=== PATIENT | female | born 1960 | race Caucasian/White ===

== ENCOUNTER 2022-05-26 17:24 | Emergency (ER) | payer SELFPAY ==
--- OUTSIDE RECORDS SUMMARY | 2022-05-26 17:44 | XMS REPORT | Continuity of Care Document ---
:1960 Author Organization [facility] t Address [address] [place] [address] Care Team Providers Name Role Phone Ever Haskins Attending Clinician Unavailable UNKNOWN Admitting Clinician Unavailable Payers Payer Name Policy Type Policy Number Effective Date Expiration Date S ource Problems This patient has no known problems. Allergies, Adverse Reactions, Alerts This patient has no known allergies or adverse reactions. Medications This patient has no known medications. Procedures This patient has no known procedures. Encounters Start End Encounter Admission Attending Care Care Encounter Source Date/Time Date/Time Type Type Clinicians Facility Department ID 2020-01-13 Inpatient KEANU Haddad MRIT [id number] [facility] 10:30:[address] [facility] Results Test Description Test Time Test Comments Results Result [facility] e Comments - MRI C-SPINE W/O 2020-01-13 Patient Name: CONT 13:26:00 BENJA BAH Unit No: [id number] EXAMS: CPT CODE: [id number] MRI C-SPINE W/O CONT 23242 CLINICAL INFORMATION: Neck pain and radiculitis. Dictation Location: B2 COMPARISON: Technique: Sagittal and axial scans were done with T1 and T2-weighted sequences. FINDINGS: There is straightening of the usual cervical lordosis with the vertebral body heights and bone marrow signal intensities maintained. No intrinsic abnormality of the spinal cord or cervicomedullary junction is identified. Occiput to C2: Unremarkable. C2-3: Minimal facet arthropathy. C3-4: 2 to 3 mm central disc protrusion. C4-5: 3 to 4 mm broad-based ridging and disc bulge flattens the anterior thecal margin. Mild foraminal encroachment on the right. C5-6: 2 to 3 mm left posterior lateral disc protrusion indents the anterior thecal margin. C6-7: Moderate interspace narrowing. 6 mm left posterior lateral disc protrusion with uncinate spurring contacts and rotates the spinal cord, impinges the exiting C7 nerve root, and narrows the left neural foramen. Right foramen clear. C7-T1: Unremarkable. IMPRESSION: 1. Straightened cervical lordosis. 2. Multilevel spondylosis. 3. Several disc protrusions are noted. 4. The dominant finding is the large left-sided disc herniation at C6-7. at 1326 Reported and signed by: Jamari Lozoya MD CC: Ever Haskins MD Technologist: Clotilde Pruett; Corin Vidal Trscr Dt/Tm: 01/13/2020 (1326) by:[email or web address] Electronic Signature Date/Time: 01/13/2020 (1326)Orig Print D/T: S: 01/13/2020 (1329) Name: BENJA BAH [facility] [place] Phys: [place] [address] : 1960 Age: 59 [place]: [place] [id number] Loc: [place].TMRI Exam Date: 01/13/2020 Status: REG CLI PH: FAX: PAGE 1 Signed Report
--- NOTE | 2022-05-26 18:14 | RAD REPORT ---
EXAM DESCRIPTION: RAD - Chest Single View - 05/26/2022 6:06 pm CLINICAL HISTORY: COUGH Chest pain. COMPARISON: No comparisons FINDINGS: Portable technique limits examination quality. The lungs are grossly clear. The heart is normal in size. No displaced fractures. IMPRESSION: No acute intrathoracic process suspected.
[2022-05-26 18:15] LABS: Absolute Lymphocytes (CBC) 1.2 K/uL (0.7-4.9); Hematocrit 40.9 % (36.0-45.0); Lymphocytes % 13.4 % (15.3-44.8); MCV 85.1 fL (80-100); MPV 7.6 fL (7.6-11.3)
[2022-05-26 18:36] LABS: Troponin High Sensitivity 7.5 pg/mL (<58.9)
[2022-05-26 18:38] LABS: Magnesium 2.1 mg/dL (1.6-2.4)
[2022-05-26 18:39] LABS: Potassium 3.7 mmol/L (3.5-5.1)
[2022-05-26 19:13] LABS: SARS-COV-2 RT PCR POSITIVE (NEGATIVE)
--- NOTE | 2022-05-26 21:06 | RAD REPORT ---
EXAM DESCRIPTION: CT - Head Brain Wo Cont - 05/26/2022 8:55 pm CLINICAL HISTORY: DIZZINESS Headache, drowsiness COMPARISON: No comparisons TECHNIQUE: All CT scans are performed using dose optimization technique as appropriate and may inclu de automated exposure control or mA/KV adjustment according to patient size. FINDINGS: No intracranial hemorrhage, hydrocephalus or extra-axial fluid collection.No areas of brai n edema or evidence of midline shift. The paranasal sinuses and mastoids are clear. The calvarium is intact. IMPRESSION: No acute intracranial abnormality.
--- NOTE | 2022-05-26 21:18 | EDPHYS ---
Physician Documentation [facility] Name: Layne Copeland Age: 62 yrs Sex: Female : 1960 Arrival Date: 05/26/2022 Time: 17:30 Bed 16 Private MD: ED Physician Tee España HPI: 05/26 17:40 This 62 yrs old Female presents to ER via EMS with complaints of Nausea, Vomiting and cp Diarrhea. 17:40 The patient presents to the emergency department with nausea, that is moderate, cp vomiting, that is intermittent, diarrhea, 1 times today. 17:40 Onset: The symptoms/episode began/occurred 2 day(s) ago. Possible causes: unknown. cp Associated signs and symptoms: Pertinent positives: near syncope, Pertinent negatives: abdominal pain, chest pain. Severity of symptoms: in the emergency department the symptoms are unchanged despite home interventions. Historical: - Allergies: 17:32 Morphine; mb9 17:32 Sulfa (Sulfonamide Antibiotics); mb9 17:32 PENICILLINS; mb9 - Home Meds: 17:32 levothyroxine oral [Active]; Synthroid Oral [Active]; mb9 - PMHx: 17:32 Hypothyroidism; mb9 - PSHx: 17:32 None; mb9 - Immunization history:: Adult Immunizations not up to date. - Social history:: Smoking status: Patient denies any tobacco usage or history of. ROS: 17:45 Constitutional: Positive for poor PO intake, Negative for chills, fever. cp 17:45 Cardiovascular: Negative for chest pain, palpitations. cp 17:45 Respiratory: Positive for cough, Negative for shortness of breath, wheezing. 17:45 Abdomen/GI: Positive for nausea, vomiting, diarrhea, Negative for abdominal pain, constipation. 17:45 Neuro: Positive for near syncope, weakness. cp 17:45 All other systems are negative. cp Exam: 17:50 Constitutional: The patient appears in no acute distress, alert, awake, cp non-diaphoretic, non-toxic, well developed, well nourished. 17:50 Head/Face: Normocephalic, atraumatic. cp 17:50 Eyes: Periorbital structures: appear normal, Pupils: equal, round, and reactive to light and accomodation, Extraocular movements: intact throughout, Conjunctiva: normal, no exudate, no injection, Sclera: no appreciated abnormality, Lids and lashes: appear normal, bilaterally. 17:50 ENT: External ear(s): are unremarkable, Nose: is normal, Mouth: Lips: moist, Oral mucosa: pink and intact, moist, Posterior pharynx: Airway: no evidence of obstruction, patent, swelling, is not appreciated, erythema, is not appreciated, exudate, is not appreciated. 17:50 Neck: ROM/movement: is normal, is supple, without pain, no range of motions limitations, no meningismus. 17:50 Chest/axilla: Inspection: normal. 17:50 Cardiovascular: Rate: normal, Rhythm: regular, Edema: is not appreciated, JVD: is not appreciated. 17:50 Respiratory: the patient does not display signs of respiratory distress, Respirations: normal, no use of accessory muscles, no retractions, labored breathing, is not present, Breath sounds: are clear throughout, no decreased breath sounds, no stridor, no wheezing. 17:50 Abdomen/GI: Inspection: abdomen appears normal, Palpation: abdomen is soft and non-tender, in all quadrants. 17:50 Neuro: Orientation: to person, place \T\ time. Mentation: is normal, Motor: moves all fours, strength is normal, Sensation: is normal, Gait: is steady. 18:52 ECG was reviewed by the Attending Physician. cp Vital Signs: 17:30 BP 152 / 65; Pulse 93; Resp 16; Temp 98.3(O); Pulse Ox 100% on R/A; Weight 86.18 kg; mb9 Height 5 ft. 7 in. (170.18 cm); Pain 0/10; 19:00 BP 128 / 51; Pulse 83; Resp 14; Pulse Ox 96% ; bp 20:25 BP 144 / 72; Pulse 89; Resp 16 S; Pulse Ox 97% on R/A; lg3 21:34 BP 136 / 76; Pulse 85; Resp 15 S; Pulse Ox 98% on R/A; lg3 17:30 Body Mass Index 29.76 (86.18 kg, 170.18 cm) mb9 MDM: 17:32 Patient medically screened. cp 21:18 Differential diagnosis: Nonspecific abd pain, gastritis. Data reviewed: vital signs, snw nurses notes, lab test result(s), radiologic studies. Counseling: I had a detailed discussion with the patient and/or guardian regarding: the historical points, exam findings, and any diagnostic results supporting the discharge/admit diagnosis, the presence of at least one elevated blood pressure reading (>120/80) during this emergency department visit, lab results, radiology results, the need for outpatient follow up, to return to the emergency department if symptoms worsen or persist or if there are any questions or concerns that arise at home. Special discussion: I have referred the patient to see his PCP for further evaluation of high blood pressure. Based on the history and exam findings, there is no indication for further emergent testing or inpatient evaluation. I discussed with the patient/guardian the need to see the primary care provider for further evaluation of the symptoms. 05/26 17:32 Order name: Basic Metabolic Panel; Complete Time: 19:05 02/ 19:05 Interpretation: Normal except: GLUC 141. 05/26 17:32 Order name: CBC with Diff; Complete Time: 19:05 05/26 19:05 Interpretation: Normal except: SALAS% 77.7; LYM% 13.4. 05/26 17:32 Order name: Magnesium; Complete Time: 19:05 cp 05/26 17:32 Order name: Troponin HS; Complete Time: 19:05 cp / 19:06 Interpretation: Troponin HS 7.5; Reviewed. 05/26 17:32 Order name: COVID-19/FLU A+B; Complete Time: 20:00 cp 02/ 20:00 Interpretation: Reviewed. 05/26 17:32 Order name: XRAY Chest (1 view); Complete Time: 19:05 05/26 19:05 Interpretation: Report review. 05/26 17:32 Order name: EKG; Complete Time: 17:32 cp 05/26 17:32 Order name: Cardiac monitoring; Complete Time: 17:35 cp 05/26 17:32 Order name: EKG - Nurse/Tech; Complete Time: 18:29 cp / 17:32 Order name: IV Saline Lock; Complete Time: 18:20 cp 02/ 20:12 Order name: CT Head Brain wo Cont; Complete Time: 21:18 cp 05/26 17:32 Order name: Labs collected and sent; Complete Time: 18:20 cp 05/26 17:32 Order name: O2 Per Protocol; Complete Time: 17:35 cp 05/26 17:32 Order name: O2 Sat Monitoring; Complete Time: 17:35 cp 05/26 19:06 Order name: PO challenge; Complete Time: 19:56 cp EC:52 Rate is 80 beats/min. Rhythm is regular. DC interval is normal. QRS interval is normal. cp QT interval is normal. T waves are Inverted in lead aVR. Interpreted by me. Reviewed by me. Administered Medications: 18:00 Drug: NS 0.9% 500 ml Route: IV; Rate: bolus; Site: right antecubital; bp 18:00 Drug: NS 0.9% 500 ml Route: IV; Rate: 125 ml/hr; Site: right antecubital; bp Disposition: 21:19 Chart complete. snw 05/27 07:46 Co-signature as Attending Physician, Tee España MD I reviewed the patient's care rt provided by the Advanced Practice Provider and agree with the diagnosis and treatment plan. Disposition Summary: 05/26/22 21:18 Discharge Ordered Location: Home snw Problem: new snw Symptoms: have improved snw Condition: Stable snw Diagnosis - SARS-associated coronavirus as the cause of diseases classified elsewhere snw - Diarrhea, unspecified snw - Nausea with vomiting, unspecified snw Followup: cp - With: Private Physician - When: 2 - 3 days - Reason: Worsening of condition Discharge Instructions: - Discharge Summary Sheet cp - Food Choices to Help Relieve Diarrhea, Adult cp - Diarrhea, Adult cp - Nausea and Vomiting, Adult cp - Aspirin and Your Heart cp - COVID-19 cp - Things to Know about the COVID-19 Pandemic - [facility] cp - 10 Things You Can Do to Manage Your COVID-19 Symptoms at Home - [facility] cp - COVID-19: Quarantine vs. Isolation - [facility] cp - Prevent the Spread of COVID-19 if You Are Sick - [facility] cp Forms: - Medication Reconciliation Form snw - Thank You Letter snw - Antibiotic Education snw - Prescription Opioid Use snw Prescriptions: - Paxlovid (EUA) 150 mg x 2- 100 mg Oral tablet - take 3 tablet by ORAL route 2 times per day for 5 days per package directions; cp 30 tablet; Refills: 0, Product Selection Permitted - Zofran 4 mg Oral Tablet - take 1 tablet by ORAL route every 12 hours As needed; 20 tablet; Refills: 0, cp Product Selection Permitted Signatures: Dispatcher [employer] EDMS YorkRoslyny, AUDIO VISUAL DIRECTOR-C AUDIO VISUAL DIRECTOR-Csnw George Alston PA PA cp Peltier, Brian, RN RN Denise Alegre RN RN mb9 Tee España MD MD rt Corrections: (The following items were deleted from the chart) 05/26 20:37 20:36 This 62 yrs old Female presents to ER via EMS with complaints of Nausea, Vomiting cp and Diarrhea. cp
--- NOTE | 2022-05-26 21:18 | ER ---
Nurse's Notes [facility] Name: Layne Copeland Age: 62 yrs Sex: Female : 1960 Arrival Date: 05/26/2022 Time: 17:30 Bed 16 Private MD: Diagnosis: SARS-associated coronavirus as the cause of diseases classified elsewhere;Diarrhea, unspecified;Nausea with vomiting, unspecified Presentation: 05/26 17:30 Chief complaint: EMS states: "pt has been sick for the past couple days. She hasn't mb9 eaten in over 24 hrs and passed out but her son caught her. They deny any LOC or hitting her head. Pt was confused and lethargic on scene". Coronavirus screen: Vaccine status: Patient reports being unvaccinated. Ebola Screen: No symptoms or risks identified at this time. Initial Sepsis Screen: Does the patient meet any 2 criteria? No. Patient's initial sepsis screen is negative. Does the patient have a suspected source of infection? No. Patient's initial sepsis screen is negative. Risk Assessment: Do you want to hurt yourself or someone else? Patient reports no desire to harm self or others. Onset of symptoms was May 26, 2022. 17:30 Method Of Arrival: EMS: [facility] mb9 17:30 Acuity: SISI 3 mb9 Triage Assessment: 17:30 General: Appears in no apparent distress. comfortable, Behavior is cooperative, bp appropriate for age, anxious. Pain: Denies pain. EENT: No deficits noted. Neuro: No deficits noted. Cardiovascular: No deficits noted. Respiratory: No deficits noted. GI: No signs and/or symptoms were reported involving the gastrointestinal system. : No signs and/or symptoms were reported regarding the genitourinary system. Derm: No deficits noted. Musculoskeletal: No deficits noted. Historical: - Allergies: 17:32 Morphine; mb9 17:32 Sulfa (Sulfonamide Antibiotics); mb9 17:32 PENICILLINS; mb9 - Home Meds: 17:32 levothyroxine oral [Active]; Synthroid Oral [Active]; mb9 - PMHx: 17:32 Hypothyroidism; mb9 - PSHx: 17:32 None; mb9 - Immunization history:: Adult Immunizations not up to date. - Social history:: Smoking status: Patient denies any tobacco usage or history of. Screenin:00 [facility] ED Fall Risk Assessment (Adult) History of falling in the last 3 months, bp including since admission No falls in past 3 months (0 pts). Abuse screen: Denies threats or abuse. Denies injuries from another. Nutritional screening: No deficits noted. Tuberculosis screening: No symptoms or risk factors identified. Assessment: 17:30 General: SEE TRIAGE NOTE. bp 19:00 Reassessment: No changes from previously documented assessment. Patient and/or family bp updated on plan of care and expected duration. Pain level reassessed. 20:25 General: Appears in no apparent distress. comfortable. General: Behavior is calm, lg3 cooperative. Pain: Denies pain. Neuro: No deficits noted. Ocampo Agitation-Sedation Scale (RASS): 0 - Alert and Calm Level of Consciousness is awake, alert, obeys commands, Oriented to person, place, time, situation. Cardiovascular: No deficits noted. Denies chest pain, shortness of breath. Respiratory: No deficits noted. Airway is patent Trachea midline Respiratory effort is even, unlabored, Respiratory pattern is regular, symmetrical. GI: No deficits noted. No signs and/or symptoms were reported involving the gastrointestinal system. : No deficits noted. No signs and/or symptoms were reported regarding the genitourinary system. EENT: No deficits noted. No signs and/or symptoms were reported regarding the EENT system. Derm: No deficits noted. No signs and/or symptoms reported regarding the dermatologic system. Skin is intact, is healthy with good turgor, Skin is dry, Skin is normal, Skin temperature is warm. Musculoskeletal: No deficits noted. Circulation, motion, and sensation intact. Range of motion: intact in all extremities. 21:32 Reassessment: Patient appears in no apparent distress at this time. No changes from lg3 previously documented assessment. Patient and/or family updated on plan of care and expected duration. Pain level reassessed. Vital Signs: 17:30 BP 152 / 65; Pulse 93; Resp 16; Temp 98.3(O); Pulse Ox 100% on R/A; Weight 86.18 kg; mb9 Height 5 ft. 7 in. (170.18 cm); Pain 0/10; 19:00 BP 128 / 51; Pulse 83; Resp 14; Pulse Ox 96% ; bp 20:25 BP 144 / 72; Pulse 89; Resp 16 S; Pulse Ox 97% on R/A; lg3 21:34 BP 136 / 76; Pulse 85; Resp 15 S; Pulse Ox 98% on R/A; lg3 17:30 Body Mass Index 29.76 (86.18 kg, 170.18 cm) mb9 ED Course: 17:30 Patient arrived in ED. 9 17:30 George Alston PA is PHCP. cp 17:30 Tee España MD is Attending Physician. cp 17:31 Triage completed. mb9 17:31 Arm band placed on. mb9 17:33 Bed in low position. Call light in reach. Side rails up X 1. Client placed on mb9 continuous cardiac and pulse oximetry monitoring. NIBP monitoring applied. threat monitoring analyst on. Door closed. Noise minimized. Warm blanket given. 17:36 Daquan Hernandez, DANDY is Primary Nurse. bp 17:38 Maintain EMS IV. Dressing intact. Good blood return noted. Site clean \\T\\ dry. Gauge \\T\\ mb 9 site: 22 gauge to right hand. 18:08 XRAY Chest (1 view) In Process Unspecified. EDMS 20:57 CT Head Brain wo Cont In Process Unspecified. EDMS 21:35 No provider procedures requiring assistance completed. IV discontinued, intact, lg3 bleeding controlled, No redness/swelling at site. Pressure dressing applied. Administered Medications: 18:00 Drug: NS 0.9% 500 ml Route: IV; Rate: bolus; Site: right antecubital; bp 18:00 Drug: NS 0.9% 500 ml Route: IV; Rate: 125 ml/hr; Site: right antecubital; bp Medication: 21:35 VIS not applicable for this client. lg3 Outcome: 21:18 Discharge ordered by . snw 21:35 Discharged to home ambulatory, with family. lg3 21:35 Condition: stable 21:35 Discharge instructions given to patient, Instructed on discharge instructions, follow up and referral plans. medication usage, Demonstrated understanding of instructions, follow-up care, medications, Prescriptions given X 2. 21:36 Patient left the ED. lg3 Signatures: Dispatcher [employer] EDMS Jannie York, JENNIFER-C LAST REPAIRER-Csnw George Alston PA PA cp Peltier, Brian, RN RN bp Gibson, Lacie, RN RN lg3 Denise Lux Beth, RN RN mb9
[2022-05-26 22:22] VITALS: TEMP 98.3
[2022-05-26 22:25] VITALS: BP 136/76; O2SAT 98
== END 2022-05-26 21:36 | disposition home or self-care (01) ==
LOC: ER 17:24
DX: U07.1 COVID-19 (principal); R19.7 Diarrhea, unspecified
CPT/HCPCS: 0240U; 36415; 70450; 71045; 80048; 83735; 84484; 85025; 93005; 99284

== ENCOUNTER 2022-10-12 10:46 | Emergency (ER) | payer SELFPAY ==
--- OUTSIDE RECORDS SUMMARY | 2022-10-12 10:50 | XMS REPORT | Continuity of Care Document ---
:1960 Author Organization [facility] t Address [address] [place] [address] Care Team Providers Name Role Phone Ever [...] Type Clinicians Facility Department ID 2020-01-13 Inpatient [id number] 10:30:[address] are [facility] Results Test Description Test Time Test Comments Results Result [facility] e Comments - MRI C-SPINE W/O 2020-01-13 Patient Name: CONT 13:26:00 BENJA BAH Unit No: [id number] EXAMS: CPT CODE: [id number] MRI C-SPINE W/O CONT 82911 CLINICAL INFORMATION: Neck pain and radiculitis. Dictation [...] D/T: S: 01/13/2020 (1329) [facility] [place]: [place] [address] : 1960 Age: 59 Sex: [place] [id number] Loc: [place].TMRI Exam Date: 01/13/2020 Status: REG CLI PH: FAX: PAGE 1 Signed Report
[2022-10-12] MEDS ORDERED: FAMOTIDINE 20 MG/2 ML VIAL IV ONE (11:13)
[2022-10-12] MEDS ORDERED: ONDANSETRON 4 MG/2 ML VIAL ONE ×2 (11:13→14:44)
[2022-10-12] MEDS ORDERED: NA CHLORIDE 0.9% 1,000 ML ONE ×2 (11:13→14:07)
[2022-10-12] MEDS ORDERED: KETOROLAC 30 MG/ML INJ ONE (11:13)
[2022-10-12 11:42] LABS: Absolute Lymphocytes (CBC) 1.2 K/uL (0.7-4.9); Hematocrit 46.6 % (36.0-45.0); Lymphocytes % 8.7 % (15.3-44.8); MCV 87.7 fL (80-100); RBC Red Blood Cell Count 5.32 M/uL (3.86-4.86)
[2022-10-12 12:02] LABS: Albumin 4.5 g/dL (3.4-5.0); Bilirubin Total 0.8 mg/dL (0.2-1.0); Protein, Total 8.6 g/dL (6.4-8.2)
[2022-10-12 12:03] LABS: Potassium 3.6 mEq/L (3.5-5.1)
[2022-10-12 12:23] LABS: Blood Morphology Comment NOT SEEN (NOT SEEN); Platelet Estimate ADEQ; White Blood Cell Scan OK (OK)
--- NOTE | 2022-10-12 12:40 | RAD REPORT ---
EXAM DESCRIPTION: CT - Abdomen Pelvis Wo Contrast - 10/12/2022 12:27 pm CLINICAL HISTORY: Abdominal pain. ABD PAIN COMPARISON: <Comparisons> TECHNIQUE: CT imaging of the abdomen and pelvis was performed without contrast. Solid organ, bowel a nd vascular assessment is limited due to lack of IV and oral contrast. All CT scans are performed using dose optimization technique as appropriate and may include automated exposure control or mA/KV adjustment according to patient size. FINDINGS: The lower lung vail are clear. The liver, spleen, pancreas, adrenal glands and kidneys are within normal limits for a limited non-co ntrast examination. No bowel obstruction, free air, free fluid or abscess. Small fat containing umbilical hernia. The carroll endix is normal. Mild lumbar degenerative changes. IMPRESSION: No acute intra-abdominal or pelvic findings. A limited non-contrast examination was performed as detailed.
[2022-10-12 16:16] LABS: Urine Bacteria <20 /HPF (<20); Urine Crystals Unidentified Few /HPF (None Seen); Urine Mucus Slight /HPF (None Seen); Urine RBC <5 /HPF (None Seen)
[2022-10-12 16:18] LABS: Urine Clarity Clear (Clear); Urine Color Yellow (Yellow); Urine Glucose Negative (Negative)
[2022-10-12 16:19] LABS: Urine Bilirubin Negative (Negative); Urine Blood Negative (Negative); Urine Protein Negative (Negative); Urine Urobilinogen Normal (Normal)
--- NOTE | 2022-10-12 16:31 | ER ---
Nurse's Notes [facility] Name: Layne Copeland Age: 62 yrs Sex: Female : 1960 Arrival Date: 10/12/2022 Time: 10:46 Bed 2 Private MD: Diagnosis: Diarrhea, unspecified;Abdominal pain, unspecified Presentation: 10/12 10:51 Chief complaint: Patient states: N/D, right sided abdominal pain, flank pain since this ld1 morning. Coronavirus screen: At this time, the client does not indicate any symptoms associated with coronavirus-19. Ebola Screen: No symptoms or risks identified at this time. Initial Sepsis Screen: Does the patient meet any 2 criteria? No. Patient's initial sepsis screen is negative. Does the patient have a suspected source of infection? No. Patient's initial sepsis screen is negative. Risk Assessment: Do you want to hurt yourself or someone else? Patient reports no desire to harm self or others. Onset of symptoms was October 12, 2022. 10:51 Method Of Arrival: Ambulatory ld1 10:51 Acuity: SISI 3 ld1 Triage Assessment: 10:53 General: Appears in no apparent distress. uncomfortable, Behavior is cooperative, ld1 agitated, anxious. Pain: Denies pain. EENT: No signs and/or symptoms were reported regarding the EENT system. Neuro: Level of Consciousness is awake, alert, obeys commands, Oriented to person, place, time, situation. Cardiovascular: Capillary refill < 3 seconds Patient's skin is warm and dry. Respiratory: Airway is patent Respiratory effort is even, unlabored. GI: Abdomen is round non-distended, Reports diarrhea, nausea. : No signs and/or symptoms were reported regarding the genitourinary system. Derm: No signs and/or symptoms reported regarding the dermatologic system. Musculoskeletal: No signs and/or symptoms reported regarding the musculoskeletal system. Historical: - Allergies: 10:52 Morphine; ld1 10:52 PENICILLINS; ld1 10:52 Sulfa (Sulfonamide Antibiotics); ld1 10:54 Valtrex; ld1 10:54 Doxycycline; ld1 10:54 Vitamin B-12; ld1 10:54 Multivitamin; ld1 - PMHx: 10:52 Hypothyroidism; Kidney stone; ld1 - PSHx: 10:52 section; ld1 10:53 Tonsillectomy; ld1 - Immunization history:: Adult Immunizations up to date. - Social history:: Smoking status: Patient denies any tobacco usage or history of. Patient/guardian denies using alcohol. Screenin:00 [facility] ED Fall Risk Assessment (Adult) History of falling in the last 3 months, bp including since admission No falls in past 3 months (0 pts). Abuse screen: Denies threats or abuse. Denies injuries from another. Nutritional screening: No deficits noted. Tuberculosis screening: No symptoms or risk factors identified. Assessment: 11:00 General: SEE TRIAGE NOTE. bp 12:52 Reassessment: PT RETURNED FROM CT. GI: Reports diarrhea, nausea. bp 15:00 Reassessment: Patient appears in no apparent distress at this time. Patient is alert, bp oriented x 3, equal unlabored respirations, skin warm/dry/pink. GI: Abdomen is non-distended, obese. 17:00 Reassessment: Patient appears in no apparent distress at this time. Patient is alert, bp oriented x 3, equal unlabored respirations, skin warm/dry/pink. 18:00 Reassessment: PT DC HOME WITH FAMILY. bp Vital Signs: 10:51 BP 134 / 100; Pulse 96; Resp 18; Temp 97.6(TE); Pulse Ox 99% on R/A; Weight 83.91 kg; ld1 Height 5 ft. 3 in. ; Pain 0/10; 12:52 BP 160 / 53; Pulse 81; Resp 16; Pulse Ox 99% ; bp 14:02 BP 177 / 82; Pulse 83; Resp 16; Pulse Ox 98% ; ko1 16:00 BP 156 / 78; Pulse 77; Resp 16; Pulse Ox 97% ; bp 18:00 BP 144 / 72; Pulse 76; Resp 16; Pulse Ox 97% ; bp 10:51 Body Mass Index 32.77 (83.91 kg, 160.02 cm) ld1 10:51 Pain Scale: Adult ld1 ED Course: 10:48 Patient arrived in ED. im 10:49 Jacklyn Schuster FNP-C is PHCP. kb 10:49 Akbar Vigil MD is Attending Physician. kb 10:52 Triage completed. ld1 10:53 Arm band placed on right wrist. ld1 11:00 Patient has correct armband on for positive identification. Bed in low position. Call bp light in reach. Side rails up X2. Adult w/ patient. 11:07 Ely Peterson, RN is Primary Nurse. ko1 11:17 Inserted saline lock: 22 gauge in left antecubital area, using aseptic technique. Blood ls5 collected. 12:27 Abdomen In Process Unspecified. EDMS 18:04 No provider procedures requiring assistance completed. IV discontinued, intact, bp bleeding controlled, No redness/swelling at site. Pressure dressing applied. Administered Medications: 11:27 Drug: NS 0.9% IV 1000 ml Route: IV; Rate: 1 bolus; Site: left antecubital; bp 17:08 Follow up: IV Status: Completed infusion; IV Intake: 1000ml bp 11:27 Drug: Famotidine IVP 20 mg Route: IVP; Site: left antecubital; bp 17:08 Follow up: Response: No adverse reaction bp 11:27 Drug: TORadol - Ketorolac IVP 15 mg Route: IVP; Site: left antecubital; bp 17:09 Follow up: Response: No adverse reaction bp 11:27 Drug: Ondansetron IVP 4 mg Route: IVP; Site: left antecubital; bp 17:09 Follow up: Response: No adverse reaction bp 14:23 Drug: NS 0.9% IV 1000 ml Route: IV; Rate: 1000 ml; Site: left antecubital; bp 17:08 Follow up: IV Status: Completed infusion; IV Intake: 1000ml bp 14:47 Drug: Ondansetron IVP 4 mg Route: IVP; Site: left antecubital; bp 17:08 Follow up: Response: No adverse reaction bp 17:08 Drug: metroNIDAZOLE PO 500 mg Route: PO; bp 18:05 Follow up: Response: No adverse reaction bp Medication: 18:05 VIS not applicable for this client. bp Intake: 17:08 IV: 1000ml; Total: 1000ml. bp 17:08 IV: 1000ml; Total: 2000ml. bp Outcome: 16:30 Discharge ordered by . kb 18:05 Discharged to home via wheelchair, with family. bp 18:05 Condition: stable 18:05 Discharge instructions given to patient, family, Instructed on discharge instructions, follow up and referral plans. medication usage, Demonstrated understanding of instructions, follow-up care, medications, Prescriptions given X 2. 18:13 Patient left the ED. iw Signatures: Dispatcher [employer] EDMS Jacklyn Schuster, ARCHITECTURE MANAGER-C ARCHITECTURE MANAGER-Carissa Boswell, RN RN Daqaun Brown, RN RN Gladys Cardenas RN RN ld1 Ely Peterson RN RN ko1 Odell Lancaster 5 Delphine Priest
--- NOTE | 2022-10-12 16:31 | EDPHYS ---
Physician Documentation [facility] Name: Layne Copeland Age: 62 yrs Sex: Female : 1960 Arrival Date: 10/12/2022 Time: 10:46 Bed 2 Private MD: ED Physician Akbar Vigil HPI: 10/12 16:41 This 62 yrs old Female presents to ER via Ambulatory with complaints of kb Nausea/Vomiting/Diarrhea. 16:41 The patient presents to the emergency department with nausea, diarrhea, abdominal pain. kb Onset: The symptoms/episode began/occurred this morning. Possible causes: unknown. The symptoms are aggravated by nothing. The symptoms are alleviated by nothing. Associated signs and symptoms: Pertinent positives: abdominal pain, diarrhea, nausea, Pertinent negatives: fever, vomiting. Severity of symptoms: At their worst the symptoms were moderate in the emergency department the symptoms are unchanged. The patient has not experienced similar symptoms in the past. The patient has not recently seen a physician. Historical: - Allergies: 10:52 Morphine; ld1 10:52 PENICILLINS; ld1 10:52 Sulfa (Sulfonamide Antibiotics); ld1 10:54 Valtrex; ld1 10:54 Doxycycline; ld1 10:54 Vitamin B-12; ld1 10:54 Multivitamin; ld1 - PMHx: 10:52 Hypothyroidism; Kidney stone; ld1 - PSHx: 10:52 section; ld1 10:53 Tonsillectomy; ld1 - Immunization history:: Adult Immunizations up to date. - Social history:: Smoking status: Patient denies any tobacco usage or history of. Patient/guardian denies using alcohol. ROS: 16:40 Constitutional: Negative for fever, chills, and weight loss. kb 16:40 Abdomen/GI: Positive for abdominal pain, nausea, diarrhea, Negative for vomiting. 16:40 Back: Positive for flank pain, on the right. 16:40 All other systems are negative. Exam: 16:40 Constitutional: This is a well developed, well nourished patient who is awake, alert, kb and in no acute distress. Head/Face: Normocephalic, atraumatic. ENT: Moist Mucous membranes Cardiovascular: Regular rate and rhythm with a normal S1 and S2. No gallops, murmurs, or rubs. No pulse deficits. Respiratory: Respirations even and unlabored. No increased work of breathing. Talking in full sentences Skin: Warm, dry with normal turgor. Normal color. MS/ Extremity: Pulses equal, no cyanosis. Neurovascular intact. Full, normal range of motion. Neuro: Awake and alert, GCS 15, oriented to person, place, time, and situation. Moves all extremities. Normal gait. 16:40 Abdomen/GI: Inspection: abdomen appears normal, Bowel sounds: normal, Palpation: abdomen is soft and non-tender, in all quadrants. 16:40 Back: CVA tenderness, that is mild, is noted on the right. Vital Signs: 10:51 BP 134 / 100; Pulse 96; Resp 18; Temp 97.6(TE); Pulse Ox 99% on R/A; Weight 83.91 kg; ld1 Height 5 ft. 3 in. ; Pain 0/10; 12:52 BP 160 / 53; Pulse 81; Resp 16; Pulse Ox 99% ; bp 14:02 BP 177 / 82; Pulse 83; Resp 16; Pulse Ox 98% ; ko1 16:00 BP 156 / 78; Pulse 77; Resp 16; Pulse Ox 97% ; bp 18:00 BP 144 / 72; Pulse 76; Resp 16; Pulse Ox 97% ; bp 10:51 Body Mass Index 32.77 (83.91 kg, 160.02 cm) ld1 10:51 Pain Scale: Adult ld1 MDM: 10:49 Patient medically screened. kb 16:35 Differential diagnosis: Nonspecific abd pain, gastritis, diverticulitis, viral kb gastroenteritis, uti, pyelonephritis, kidney stone, colitis. Data reviewed: vital signs, nurses notes. Counseling: I had a detailed discussion with the patient and/or guardian regarding: the historical points, exam findings, and any diagnostic results supporting the discharge/admit diagnosis, lab results, radiology results, the need for outpatient follow up, a family practitioner, to return to the emergency department if symptoms worsen or persist or if there are any questions or concerns that arise at home. ED course: Pt wants antibiotics or antivirals. States she does not believe in letting anything run its course. States she could have a kidney stone that cannot be seen on CT or shingles in her abd. Pt educated that antiviral medication is not indicated at this time and that antibiotics could make the diarrhea worse. I offered to have stool culture and c.diff testing sent, but informed pt that the results would not come back today. Pt states she still wants antibiotics. Also reports she does not want to go home because it is 80 degrees in her house and she cannot stay cool there. Educated that there is no indication for admission at this time. Educated on importance of increasing fluid intake to replace what she is losing through diarrhea. Pt states she is going to come back because of dehydration because it is just too hot in her house. . 10/12 10:54 Order name: CBC with Diff; Complete Time: 12:39 kb 10/12 10:54 Order name: CMP; Complete Time: 12:39 kb 10/12 10:54 Order name: Lipase; Complete Time: 12:39 kb 10/12 10:54 Order name: Urinalysis w/ reflexes; Complete Time: 16:19 kb 10/12 12:24 Order name: CBC Smear Scan; Complete Time: 12:39 EDMS 10/12 16:29 Order name: Stool Culture 10/12 16:29 Order name: C.difficile 10/12 12:27 Order name: Abdomen ; Complete Time: 12:43 EDMS 10/12 10:54 Order name: IV Saline Lock; Complete Time: 11:27 kb 10/12 10:54 Order name: Labs collected and sent; Complete Time: 11:27 kb Administered Medications: 11:27 Drug: NS 0.9% IV 1000 ml Route: IV; Rate: 1 bolus; Site: left antecubital; bp 17:08 Follow up: IV Status: Completed infusion; IV Intake: 1000ml bp 11:27 Drug: Famotidine IVP 20 mg Route: IVP; Site: left antecubital; bp 17:08 Follow up: Response: No adverse reaction bp 11:27 Drug: TORadol - Ketorolac IVP 15 mg Route: IVP; Site: left antecubital; bp 17:09 Follow up: Response: No adverse reaction bp 11:27 Drug: Ondansetron IVP 4 mg Route: IVP; Site: left antecubital; bp 17:09 Follow up: Response: No adverse reaction bp 14:23 Drug: NS 0.9% IV 1000 ml Route: IV; Rate: 1000 ml; Site: left antecubital; bp 17:08 Follow up: IV Status: Completed infusion; IV Intake: 1000ml bp 14:47 Drug: Ondansetron IVP 4 mg Route: IVP; Site: left antecubital; bp 17:08 Follow up: Response: No adverse reaction bp 17:08 Drug: metroNIDAZOLE PO 500 mg Route: PO; bp 18:05 Follow up: Response: No adverse reaction bp Disposition: 18:56 Co-signature as Attending Physician, Akbar Vigil MD I agree with the assessment and kdr plan of care. Disposition Summary: 10/12/22 16:30 Discharge Ordered Location: Home kb Condition: Stable kb Diagnosis - Diarrhea, unspecified kb - Abdominal pain, unspecified kb Followup: kb - With: Emergency Department - When: As needed - Reason: Worsening of condition Followup: kb - With: Private Physician - When: 2 - 3 days - Reason: Recheck today's complaints, Continuance of care, Re-evaluation by your physician Discharge Instructions: - Discharge Summary Sheet kb - Food Choices to Help Relieve Diarrhea, Adult kb - Abdominal Pain, Adult, [id number] kb - Diarrhea, Adult, [id number] kb Forms: - Medication Reconciliation Form kb - Thank You Letter kb - Antibiotic Education kb - Prescription Opioid Use kb - [email or web address].htm kb - Work release form iw Prescriptions: - Flagyl 500 mg Oral Tablet - take 1 tablet by ORAL route every 8 hours for 7 days; 21 tablet; Refills: 0, kb Product Selection Permitted - Zofran 4 mg Oral Tablet - take 1 tablet by ORAL route every 6 hours As needed; 12 tablet; Refills: 0, kb Product Selection Permitted Signatures: Dispatcher [employer] EDDC Jacklyn Schuster, BUILDING AND GROUNDS SUPERVISOR-C BUILDING AND GROUNDS SUPERVISOR-Akbar Crystal MD MD kdr Peltier, Brian, RN RN bp Gladys Brooke RN RN ld1 Corrections: (The following items were deleted from the chart) 12:27 10:55 Abdomen Pelvis W Con+CT.RAD.BRZ ordered. EDMS EDMS 16:50 15:26 Straight Cath ordered. kb bp
[2022-10-12] MEDS ORDERED: METRONIDAZOLE 500mg IVPB 500 MG/100 ML BAG IV ONE (17:03)
[2022-10-12] MEDS ORDERED: metroNIDAZOLE 500 MG TABLET ONE (18:10)
[2022-10-12 18:30] VITALS: TEMP 97.6
[2022-10-12 18:30] LABS: C.diff Antigen/Toxin Ag neg : Tox neg (NEG : NEG)
[2022-10-12 18:34] VITALS: O2SAT 97
[2022-10-12 18:35] VITALS: BP 144/72
== END 2022-10-12 18:13 | disposition home or self-care (01) ==
LOC: ER 10:46
DX: R19.7 Diarrhea, unspecified (principal); R10.9 Unspecified abdominal pain; Z88.0 Allergy status to penicillin; Z88.1 Allergy status to other antibiotic agents; Z88.2 Allergy status to sulfonamides; Z88.5 Allergy status to narcotic agent; Z88.8 Allergy status to other drugs, medicaments and biological substances; Z91.048 Other nonmedicinal substance allergy status
CPT/HCPCS: 36415; 74176; 80053; 81001; 83690; 85025; 87045; 87046; 87324; 96361; 96374; 96375; 99284; J2405; J7030

== ENCOUNTER → 2023-05-06 | Emergency (ER) | payer OTHER, SELFPAY ==
--- OUTSIDE RECORDS SUMMARY | 2023-05-06 19:16 | XMS REPORT | Continuity of Care Document ---
Author Name Unknown Address [address] [place] [address] [facility] thconnect Address [address] [place] [address] Care Team Providers Care Speech Language Specialist Name Role Phone Ever Haskins Attending Clinician Unavailable UNKNOWN Admitting Clinician Unavailable Payers Payer Name Policy Type Policy Number Effective Date Expirati on Date Source Encounters Start Date/Time End Date/Time Encounter Type Admission Type Attending Clinicians Care Facility Care Department Encounter ID Source 2020-01-13 10:30:00 Inpatient TORIN Ever Haskins [facility] MRIT [id number] [address] [facility] are [facility] Results Test Description Test Time Test Comments Results Resul t Comments Source - MRI C-SPINE W/O CONT 2020-01-13 13:26:00 Patient Name: BENJA BAH Unit No: [id number] EXAMS: CPT CODE: [id number] MRI C-SPINE W/O CONT [id number] CLINICAL INFORMATION: Neck pain and radiculitis. Dictation [...] D/T: S: 01/13/2020 (1329) Name: BENJA BAH [facility] [place]: [place] [id number] : 1960 Age: 59 [place]: [place] [id number] Loc: [place].TMRI Exam Date: 01/13/2020 Status: REG CLI PH: FAX: PAGE 1 Signed Report
--- NOTE | 2023-05-06 19:38 | EDPHYS ---
Physician Documentation [facility] Name: Layne Copeland Age: 63 yrs Sex: Female : 1960 Arrival Date: 05/06/2023 Time: 19:14 Bed 19 Private MD: ED Physician Epifanio Brooke HPI: 05/06 19:39 This 63 yrs old Female presents to ER via Unassigned with complaints of Fall Injury, ms3 Hip Injury, Back Injury. 19:50 63-year-old female with past medical history of hypothyroidism presents to the [facility] emergency department status post falling down 20 steps due to ice on Monday. Patient states she landed on her right hip and slid down the stairs on her right hip. Patient states her discomfort is a 6/10. Patient states Tylenol improves her symptoms. Patient denies alleviating factors. Patient states she has been ambulatory without difficulty and has continued to work since falling.. Historical: - Allergies: 19:58 PENICILLINS; pf1 19:58 Sulfa (Sulfonamide Antibiotics); pf1 19:58 Motrin; pf1 - PMHx: 19:58 Hypothyroidism; Kidney stone; pf1 - PSHx: 19:58 section; Tonsillectomy; pf1 - Immunization history:: Adult Immunizations not up to date, Client reports having NOT received the Covid vaccine. Last tetanus immunization: < 10 years ago Flu vaccine is not up to date. - Social history:: Smoking status: Patient denies any tobacco usage or history of. Patient/guardian denies using alcohol, street drugs. ROS: 19:50 Constitutional: Negative for fever, and chills. Neck: Negative for injury, pain, and ms3 swelling, Cardiovascular: Negative for chest pain, and palpitations. Respiratory: Negative for shortness of breath, cough, wheezing, and pleuritic chest pain, Abdomen/GI: Negative for abdominal pain, nausea, vomiting, diarrhea, and constipation, 19:50 MS/extremity: Positive for Right hip pain, back pain, Exam: 19:50 Constitutional: This is a well developed, well nourished patient who is awake, alert, ms3 and in no acute distress. Head/Face: Normocephalic, atraumatic. Neck: Trachea midline, no cervical lymphadenopathy. Supple, full range of motion without nuchal rigidity, or vertebral point tenderness. No Meningismus. Chest/axilla: Normal chest wall appearance and motion. Nontender with no deformity. Cardiovascular: Regular rate and rhythm with a normal S1 and S2. No gallops, murmurs, or rubs. Normal PMI, no JVD. No pulse deficits. Respiratory: Lungs have equal breath sounds bilaterally, clear to auscultation and percussion. No rales, rhonchi or wheezes noted. No increased work of breathing, no retractions or nasal flaring. Abdomen/GI: Soft, non-tender, with normal bowel sounds. No distension or tympany. No guarding or rebound. No evidence of tenderness throughout. 19:50 Skin: injury, contusion(s), that are deep, of the Right hip, Vital Signs: 19:20 BP 163 / 80; Pulse 81; Resp 16; Temp 98.5; Pulse Ox 100% on R/A; Weight 77.11 kg; pf1 Height 5 ft. 7 in. ; Pain 6/10; 20:02 BP 158 / 78; Pulse 79; Resp 16; Pulse Ox 100% on R/A; Pain 6/10; pf1 19:20 Body Mass Index 26.63 (77.11 kg, 170.18 cm) pf1 19:20 Pain Scale: Adult pf1 20:02 Pain Scale: Adult pf1 MDM: 19:37 Patient medically screened. ms3 19:50 Differential diagnosis: contusion, sprain, strain. Data reviewed: vital signs, nurses ms3 notes, and as a result, I will discharge patient. Historians other than the Patient: Spouse/Significant Other: Patient's . Counseling: I had a detailed discussion with the patient and/or guardian regarding the historical points, exam findings, and any diagnostic results supporting the discharge/admit diagnosis, the need for outpatient follow up, to return to the emergency department if symptoms worsen or persist or if there are any questions or concerns that arise at home. ED course: Discussed x-rays with patient and she declines as she is ambulatory and has worked after incident. Patient given prescription for Flexeril. Patient to follow-up with primary care physician in 2 to 3 days. Patient understands and agrees with plan. All questions were answered. Return precautions discussed include worsening symptoms, or any other concerns. Administered Medications: No medications were administered Disposition Summary: 05/06/23 19:38 Discharge Ordered Notes: Location: Home ms3 Condition: Stable ms3 Diagnosis - Contusion of right hip ms3 - Fall (on) (from) other stairs and steps ms3 Followup: ms3 - With: Jair Hyatt DO - When: 2 - 3 days - Reason: Recheck today's complaints Discharge Instructions: - Discharge Summary Sheet ms3 - Hematoma ms3 - Contusion, [id number] ms3 Forms: - Medication Reconciliation Form ms3 - Thank You Letter ms3 - Antibiotic Education ms3 - Prescription Opioid Use ms3 - Patient Portal Instructions ms3 - Leadership Thank You Letter ms3 Prescriptions: - Ibuprofen 600 mg Oral Tablet - take 1 tablet ORAL route every 6 hours As needed take with food; 30 tablet; ms3 Refills: 0, Product Selection Permitted - Cyclobenzaprine 10 mg Oral Tablet - take 1 tablet ORAL route every 8 hours As needed; 30 tablet; Refills: 0, ms3 Product Selection Permitted Signatures: Epifanio Brooke DO DO ms3 Ida Gilliam, RN RN pf1
--- NOTE | 2023-05-06 20:04 | ER ---
Nurse's Notes [facility] Name: Layne Copeland Age: 63 yrs Sex: Female : 1960 Arrival Date: 05/06/2023 Time: 19:14 Bed 19 Private MD: Diagnosis: Contusion of right hip;Fall (on) (from) other stairs and steps Presentation: 05/06 19:20 Chief complaint: Patient states: right buttocks pain of 6 and lower back pain,onset pf1 Monday, S/P fell down 20 steps when she slipped on some ice. 19:20 Coronavirus screen: Vaccine status: Patient reports being unvaccinated. Client denies pf1 travel out of the [place] in the last 14 days. At this time, the client does not indicate any symptoms associated with coronavirus-19. Ebola Screen: Patient negative for fever greater than or equal to 101.5 degrees Fahrenheit, and additional compatible Ebola Virus Disease symptoms. Initial Sepsis Screen: Does the patient meet any 2 criteria? No. Patient's initial sepsis screen is negative. Does the patient have a suspected source of infection? No. Patient's initial sepsis screen is negative. Risk Assessment: Do you want to hurt yourself or someone else? Patient reports no desire to harm self or others. 19:20 Method Of Arrival: Ambulatory pf1 19:20 Acuity: SISI 4 pf1 Historical: - Allergies: 19:58 PENICILLINS; pf1 19:58 Sulfa (Sulfonamide Antibiotics); pf1 19:58 Motrin; pf1 - PMHx: 19:58 Hypothyroidism; Kidney stone; pf1 - PSHx: 19:58 section; Tonsillectomy; pf1 - Immunization history:: Adult Immunizations not up to date, Client reports having NOT received the Covid vaccine. Last tetanus immunization: < 10 years ago Flu vaccine is not up to date. - Social history:: Smoking status: Patient denies any tobacco usage or history of. Patient/guardian denies using alcohol, street drugs. Screenin:20 [facility] ED Fall Risk Assessment (Adult) History of falling in the last 3 months, pf1 including since admission Yes- single mechanical fall (1 pt) Confusion or Disorientation No (0 pts) Intoxicated or Sedated No (0 pts) Impaired Gait No (0 pts) Mobility Assist Device Used No (0 pt) Altered Elimination No (0 pt) Score/Fall Risk Level 0 - 2 = Low Risk Oriented to surroundings, Maintained a safe environment, Educated pt \T\ family on fall prevention, incl call for assistance when getting out of bed, Assessed \T\ reinforced patient's understanding of fall precautions, Provided non-skid footwear, Hourly rounding (assess needs \T\ fall precautionary measures) done, Used ambulatory aids as needed (educated on \T\ assisted with), Used gait belt as appropriate. Abuse screen: Denies threats or abuse. Nutritional screening: No deficits noted. Tuberculosis screening: No symptoms or risk factors identified. Assessment: 19:20 General: Appears in no apparent distress. comfortable, well groomed, well developed, pf1 Behavior is calm, cooperative, appropriate for age, quiet. 19:20 Pain: Complains of pain in back and buttocks Pain currently is 6 out of 10 on a pain pf1 scale. Pain began Monday. Neuro: No deficits noted. Level of Consciousness is awake, alert, obeys commands, Oriented to person, place, time, situation. Cardiovascular: No deficits noted. Capillary refill < 3 seconds Patient's skin is warm and dry. Respiratory: No deficits noted. Airway is patent Respiratory effort is even, unlabored, Respiratory pattern is regular, symmetrical. GI: No deficits noted. No signs and/or symptoms were reported involving the gastrointestinal system. : No deficits noted. No signs and/or symptoms were reported regarding the genitourinary system. EENT: No deficits noted. No signs and/or symptoms were reported regarding the EENT system. Derm: Bruising that is dark purple, on buttocks. Musculoskeletal: Reports pain in back and buttocks. Vital Signs: 19:20 BP 163 / 80; Pulse 81; Resp 16; Temp 98.5; Pulse Ox 100% on R/A; Weight 77.11 kg; pf1 Height 5 ft. 7 in. ; Pain 6/10; 20:02 BP 158 / 78; Pulse 79; Resp 16; Pulse Ox 100% on R/A; Pain 6/10; pf1 19:20 Body Mass Index 26.63 (77.11 kg, 170.18 cm) pf1 19:20 Pain Scale: Adult pf1 20:02 Pain Scale: Adult pf1 ED Course: 19:17 Patient arrived in ED. [email or web address] 19:19 Epifanio Brooke DO is Attending Physician. ms3 19:20 Arm band placed on right wrist. pf1 19:20 Patient has correct armband on for positive identification. Bed in low position. Call pf1 light in reach. 19:37 Jair Hyatt DO is Referral Physician. ms3 19:58 Triage completed. pf1 20:02 No provider procedures requiring assistance completed. Patient did not have IV access pf1 during this emergency room visit. 20:03 Provided Education on: prescription. pf1 Administered Medications: No medications were administered Medication: 20:03 VIS not applicable for this client. pf1 Outcome: 19:38 Discharge ordered by MD. ms3 20:02 Discharged to home ambulatory, with family, pf1 20:02 Condition: stable 20:02 Discharge instructions given to patient, family, Instructed on discharge instructions, follow up and referral plans. Demonstrated understanding of instructions, follow-up care, medications, Prescriptions given X 1, 20:04 Patient left the ED. pf1 Signatures: Epifanio Brooke DO DO ms3 Lisa Torre [email or web address] Ida Gilliam, RN RN pf1
[2023-05-06 22:55] VITALS: BP 158/78; TEMP 98.5; O2SAT 100
== END ==
LOC: ER 19:14
DX: S70.01XA Contusion of right hip, initial encounter (principal); W00.1XXA Fall from stairs and steps due to ice and snow, initial encounter; M54.50 Low back pain, unspecified; M25.551 Pain in right hip; Z88.0 Allergy status to penicillin; Z88.2 Allergy status to sulfonamides; Z88.8 Allergy status to other drugs, medicaments and biological substances
CPT/HCPCS: 99283